=== PATIENT | female | born 1950 | race Caucasian/White ===

== ENCOUNTER → 2019-05-07 | Day surgery (SDC) | payer MEDICARE, BC ==
[~2019-05-07] MED LIST: ACETAMINOPHEN325 M1 PO; ASPIR 8181 MG PO; AZO CRANBERRY1 EACH PO; CALCIUM + VITA1 EACH PO; CALCIUM CARBON500 MG PO; CARBAMAZEPINE200 MG PO; CLARITIN-D 241 EACH PO; CYMBALTA30 MG PO; ESTRADIOL1 MG PO; EZETIMIBE-SIMV1 EAC3 PO; FENOFIBRATE145 MG PO; FENTANYL CITRATE/PF 100MCG/2 ML INJ ONE; FEXOFENADINE H180 MG PO; GLIMEPIRIDE2 MG PO; HYDRALAZINE HCL 20 MG/ML VIAL ONE; INSULIN REGULAR, HUMAN 100 UNIT/1 ML 3ML VIAL ONE; JANUVIA100 MG PO; KLOR-CON M2020 MEQ PO; LABETALOL HCL 5 MG/ML 20ML VIAL ONE; LYRICA75 MG PO; METFORMIN HCL500 MG PO; METOLAZONE5 MG PO; MIDAZOLAM HCL 2 MG/2 ML VIAL ONE; MULTI-VITAMIN1 EACH PO; OMEGA 3 1,0001 EACH PO; OMEPRAZOLE40 MG PO; OR PHACO EYE KIT ONE; PREOP PHACO EYE KIT ONE; TRESIBA100 UNIT/1 SC; vit b12 PO
--- OUTSIDE RECORDS SUMMARY | 2019-05-07 10:28 | XMS REPORT | Summary of Care ---
Author José Miguel Ellis [facility] Unknown Address Unknown Phone Unavailable Care Team Providers Care Search Engine Optimization Strategist Name Role Phone FRANCES N.PHuang, THIERRY Unavailable Unavailable MAGNUS Pastrana, FLACA Unavailable Unavailable AGUS N.Lencho, ANDREE Unavailable Unavailable MAGNUS ZAFAR, FLACA Unavailable Unavailable FRANCES HAIR, THIERRY Unavailable Unavailable HERACLIO ZAFAR, [facility]ORD [facility] Unavailable Unavailable AASHISH ZAFAR, DEDE Unavailable Unavailable Unavailable Unavailable Functional Status Name Dates Details Functional status health issues are not documented Status: Name Dates Details Cognitive status health issues are not documented Status: Problems Name Dates Details Encounter to establish care with new doctor (V65.8, Z76.89) Status: Active Abdominal pain (789.00, R10.9) Status: Active Abnormal complete blood count (790.6, R79.89) Status: Active Post-menopausal (V49.81, Z78.0) Status: Active Diabetes (250.00, E11.9) Status: Active Hypokalemia (276.8, E87.6) Status: Active Migraine without status migrainosus, not intractable (346.90, G43.909) Status: Active Edema (782.3, R60.9) Status: Active Hormone replacement therapy (postmenopausal) (V07.4, Z79.890) Status: Active Hypercholesterolemia (272.0, E78.00) Status: Active Neuropathy, peripheral (356.9, G62.9) Status: Active Chronic GERD (530.81, K21.9) Status: Active Need for hepatitis C screening test (V73.89, Z11.59) Status: Active Screen for colon cancer (V76.51, Z12.11) Status: Active History of malignant melanoma of skin (V10.82, Z85.820) Status: Resolved Encounter for diabetic foot exam (250.00, E11.9) Status: Active Encounter for screening mammogram for breast cancer (V76.12, Z12.31) Status: Active Osteoporosis screening (V82.81, Z13.820) Status: Active Well woman exam (V72.31, Z01.419) Status: Active Counseling for hormone replacement therapy (V07.4, Z71.89) Status: Active Medications Name Dates Details Omeprazole 20 MG Oral Tablet Delayed Release Disintegrating 1 tab PO daily Quantity: 90 M.A. Active B-12 2500 MCG Oral Tablet * Refills: 0 M.A. Active [place]-3 CAPS 1 tab 2 time a day * Refills: 0 M.A. Active AZO Cranberry TABS * Refills: 0 M.A. Active Claritin 10 MG Oral Tablet * Refills: 0 M.A. Active Januvia 100 MG Oral Tablet TAKE 1 TABLET DAILY * Refills: 0 M.A. Active metFORMIN HCl - 500 MG Oral Tablet TAKE 1 TABLET 3 TIMES DAILY * Refills: 0 M.A. Active Estradiol 0.5 MG Oral Tablet TAKE 1 TABLET DAILY. * Quantity: 15 Refills: 0 GOLDSMITH N.P., ANDREE Active carBAMazepine ER 200 MG Oral Tablet Extended Release 12 Hour TAKE 2 TABLETS TWICE DAILY * Quantity: 120 Refills: 0 DANIELS N.P., THIERRY Active Glimepiride 4 MG Oral Tablet TAKE 1 TABLET TWICE DAILY. * Refills: 0 M.A. Active Klor-Con M20 20 MEQ Oral Tablet Extended Release TAKE 3 TABLET DAILY * Quantity: 90 Refills: 0 SATTAR M.D., FLACA Active Acetaminophen 500 MG Oral Tablet * Refills: 0 M.A. Active metOLazone 2.5 MG Oral Tablet TAKE 1 TABLET DAILY. * Quantity: 90 Refills: 0 SATTAR M.D., FLACA Active Pregabalin 75 MG Oral Capsule TAKE 2 CAPSULE TWICE DAILY * Quantity: 120 Refills: 0 SATTAR M.D., FLACA Active DULoxetine HCl - 60 MG Oral Capsule Delayed Release Particles TAKE 1 CAPSULE DAILY * Refills: 0 M.A. Active Ezetimibe-Simvastatin 10-40 MG Oral Tablet TAKE 1 TABLET AT BEDTIME. * Quantity: 90 Refills: 0 SATTAR M.D., FLACA Active Spironolactone 25 MG Oral Tablet TAKE 1 TABLET DAILY * Quantity: 90 Refills: 0 SATTAR M.D., FLACA Active Aspirin 81 MG TABS TAKE 1 TABLET DAILY. * Refills: 6 M.A. Active Calcium 600+D3 600-800 MG-UNIT Oral Tablet Takes 1 tablet twice a day * Refills: 0 M.A. * Start : 30-Jan-2019 Active Multi For Her 50+ Oral Tablet TAKE 1 TABLET DAILY. * Refills: 0 M.A. * Start : 30-Jan-2019 Active Tresiba FlexTouch 100 UNIT/ML Subcutaneous Solution Pen-injector Inject subcutaneous 20 units at bedtime * Refills: 0 M.A. * Start : 30-Jan-2019 Active 5 x 3 ML Pen Fenofibrate 160 MG Oral Tablet TAKE 1 TABLET DAILY. * Quantity: 90 Refills: 0 SATTAR M.D., FLACA * Start : 13-Feb-2019 Active Allergies and Adverse Reactions Name Dates Details Sodium Phosphate SOLN (Allergy) Status: Active Past Medical History Name Dates Details History of malignant melanoma of skin (V10.82, Z85.820) Status: Resolved Procedures Procedure Dates Details [Q] FECAL GLOBIN BY IMMUNOCHEMISTRY Date: 13-Feb-2019 [place] - DIGITAL MAMMOGRAM Date: 20-Feb-2019 [place] Bone Density Scan 13775 Date: 20-Feb-2019 History of Appendectomy Completed History of Total Abdominal Hysterectomy Completed History of Gallbladder surgery Completed History of Wrist Surgery Completed History of Foot surgery Completed History of Knee Surgery Completed History of Tonsillectomy Completed History of Dilation And Curettage Completed Immunization Name Dates Details PCV 13, pneumococcal conjugate vaccine, 13 valent on: Jun-2014 Pneumococcal polysaccharide vaccine, 23 valent on: Jun-2015 Tdap on: Jun-2017 Family History Name Dates Details Family history of Alzheimer's disease (V17.2, Z82.0) Comments: Other Status: Active Family history of cardiac disorder (V17.49, Z82.49) Comments: Other Status: Active Family history of hypertension (V17.49, Z82.49) Comments: Other Status: Active Name Dates Details Family history of Elevated triglycerides with high cholesterol (272.2, E78.2) Status: Active Name Dates Details Family history of leukemia (V16.6, Z80.6) Status: Active Name Dates Details Family history of Parkinsonism (V17.2, Z82.0) Status: Active Name Dates Details Family history of diabetes mellitus (V18.0, Z83.3) Status: Active Social History Name Dates Details - Status: Name Dates Details Never smoker Vital Signs Date Test Result Details :22 BP Systolic 115 mm[Hg] Status: Comments: Location: LUE; Position: Sitting BP Diastolic 82 mm[Hg] Status: Comments: Location: LUE; Position: Sitting Height 69 in Status: Weight 229 lb Status: Body Mass Index Calculated 33.82 kg/m2 Status: Body Surface Area Calculated 2.19 m2 Status: Temperature 97.5 f Status: Comments: Method: Oral Heart Rate 89 /min Status: Comments: Location: L Radial; Quality: Normal :12 BP Systolic 153 mm[Hg] Status: Comments: Location: LUE; Position: Sitting BP Diastolic 82 mm[Hg] Status: Comments: Location: LUE; Position: Sitting Heart Rate 76 /min Status: :08 BP Systolic 167 mm[Hg] Status: Comments: Location: LUE; Position: Sitting BP Diastolic 90 mm[Hg] Status: Comments: Location: LUE; Position: Sitting Height 69.75 in Status: Weight 231.3125 lb Status: Body Mass Index Calculated 33.43 kg/m2 Status: Body Surface Area Calculated 2.21 m2 Status: Temperature 97.8 f Status: Comments: Method: Temporal Heart Rate 76 /min Status: Respiration Rate 16 /min Status: Results Date Description Value Details :45 [Q] CARBAMAZEPINE AND METABOLITE CARBAMAZEPINE, TOTAL 6.8 {mcg/ml} Range: 4.0-12.0 CARBAMAZEPINE METABOLITE 1.8 {mcg/ml} Range: 0.2-2.0 Comments: This test was developed and its analytical performancecharacteristics have been determined by [employer] [place], [place]. It hasnot been cleared or approved by the U.S. Food and DrugAdministration. This assay has been validated pursuantto the CLIA regulations and is used for clinicalpurposes. :45 [QLH] HEPATITIS C ANTIBODY Comments: REPORT COMMENT:FASTING:UNKNOWN HEPATITIS C ANTIBODY NON-REACTIVE (Normal) Range: NON-REACTIVE SIGNAL TO CUT-OFF 0.03 (Normal) Range: <1.00 Comments: HCV antibody was non-reactive. There is no laboratory evidence of HCV infection. In most cases, no further action is required. However,if recent HCV exposure is suspected, a test for HCV RNA(test code 28484) is suggested. For additional information please refer tohttp://education.DriveHQ.[employer]/faq/WPA01i2(This link is being provided for informational/educational purposes only.) Plan of Care Name Dates Details Planned Observations Planned Goals not documented Planned Encounters Appointment; FLACA AGUDELO M.D. On: 18-Mar-2019 11:00 Appointment; DEDE ZENDEJAS M.D. On: 25-Mar-2019 15:00 Appointment; BRADFORD PULLIAM M.D. On: 03-Apr-2019 15:15 Appointment; GERBER DRAKE M.D. On: 24-May-2019 15:00 Instructions Name Dates Details Instructions not documented Encounters Appointment; THIERRY DANIELS NP Encounter Diagnosis: Problem not documented On: 25-Dec-2018 14:30 Appointment; BRADFORD PULLIAM M.D. Encounter Diagnosis: Problem not documented On: 06-Feb-2019 9:30 Appointment; FLACA AGUDELO M.D. Encounter Diagnosis: Problem not documented On: 13-Feb-2019 13:00 Appointment; DEDE ZENDEJAS M.D. Encounter Diagnosis: Problem not documented On: 18-Feb-2019 16:20 Appointment; ANDREE GOLDSMITH NP Encounter Diagnosis: Problem not documented On: 20-Feb-2019 13:00 Appointment; BRADFORD PULLIAM M.D. Encounter Diagnosis: Problem not documented On: 20-Feb-2019 14:00 Appointment; DEDE ZENDEJAS M.D. Encounter Diagnosis: Problem not documented On: 28-Feb-2019 14:40 Appointment; DEDE ZENDEJAS M.D. Encounter Diagnosis: Problem not documented On: 11-Mar-2019 16:00
--- OUTSIDE RECORDS SUMMARY | 2019-05-07 10:28 | XMS REPORT ---
Author Author [facility] Address Unknown Phone Unavailable Care Team Providers Care Career And Technology Education Teacher Name Role Phone Unavailable Unavailable Payers Payer Name Policy Type Policy Number Effective Date Expiration Date Problems This patient has no known problems. Allergies, Adverse Reactions, Alerts Allergy Name Allergy Type Status Severity Reaction(s) Onset Date Inactive Date Treating Clinician Comments Phenothiazines DA Active U 2007-03-22 00:00:00 prochlorperazine DA Active U 2007-03-22 00:00:00 codeine DA Active U 2007-03-22 00:00:00 belladonna alkaloids DA Active U 2007-03-22 00:00:00 hyoscyamine DA Active U 2007-03-22 00:00:00 promethazine DA Active U 2007-03-22 00:00:00 chlorpromazine DA Active U 2007-03-22 00:00:00 mesoridazine DA Active U 2007-03-22 00:00:00 .CHLORPH DA Active U 2007-03-22 00:00:00 .ETHOPROPA DA Active U 2007-03-22 00:00:00 .HYCOSAMIN DA Active U 2007-03-22 00:00:00 .METHOTRIM DA Active U 2007-03-22 00:00:00 .PROPIOMA DA Active U 2007-03-22 00:00:00 .SODIUM PE DA Active U 2007-03-22 00:00:00 AMITRIPTYLINE DA Active U 2007-03-22 00:00:00 CODEINE DA Active U 2007-03-22 00:00:00 COMPAZINE DA Active U 2007-03-22 00:00:00 FLUPHENAZINE DA Active U 2007-03-22 00:00:00 LOMOTIL DA Active U 2007-03-22 00:00:00 MESORIDAZINE DA Active U 2007-03-22 00:00:00 No Known Contrast Allergies DA Active U 2007-03-22 00:00:00 No Known Food Allergies DA Active U 2007-03-22 00:00:00 No Known Other Allergies DA Active U 2007-03-22 00:00:00 PROCHLORPERAZINE DA Active U 2007-03-22 00:00:00 PROMETHAZINE DA Active U 2007-03-22 00:00:00 THIETHYLPERAZINE DA Active U 2007-03-22 00:00:00 TYLENOL DA Active U 2007-03-22 00:00:00 Medications This patient has no known medications. Results Test Description Test Time Test Comments Text Results Atomic Results Result Comments SCR MAMM BILATERAL LUC CAD DIGITAL 2019-03-26 08:51:23 - SCR MAMM BILATERAL LUC CAD DIGITALBILATERAL DIGITAL SCREENING MAMMOGRAM 3D/2D WITH CAD: 03/25/2019CLINICAL: Asymptomatic. Digital breast tomosynthesis was performed in addition to routine CC and MLO views. Current mammographic images were evaluated by either a Datacastle M-Vu or a [employer] ImageChecker CAD (computer aided detection system). Comparison is made to exams dated 11/16/2016 mammogram, 05/07/2013 mammogram, and 04/05/2012 mammogram - [facility]-. The tissue of both breasts is heterogeneously dense. This may lower the sensitivity of mammography. There is a biopsy clip in the left breast. No suspicious mass, architectural distortion, malignant type calcification, or lymph node abnormality detected. Breast architecture is stable compared to prior exams.IMPRESSION: BENIGNThere is no mammographic evidence of malignancy. Resume annual screening mammography in one year. Yash Isidro M.D. ss/penrad:03/26/2019 08:51:23 Cake Knocker: Grace [place], [facility]-FWletter sent: BIRADS 1-2 Normal Mammogram BI-RADS: 2 Benign
[2019-05-07 14:45] VITALS: BP 120/63
== END | disposition home or self-care (01) ==
LOC: OR 10:26
PROVIDERS: ATTEND Ophthalmology
DX: H25.12 Age-related nuclear cataract, left eye (principal); E11.22 Type 2 diabetes mellitus with diabetic chronic kidney disease; I12.9 Hypertensive chronic kidney disease with stage 1 through stage 4 chronic kidney disease, or unspecified chronic kidney disease; N18.3 Chronic kidney disease, stage 3 (moderate); G57.90 Unspecified mononeuropathy of unspecified lower limb; M54.9 Dorsalgia, unspecified; G47.33 Obstructive sleep apnea (adult) (pediatric); E78.5 Hyperlipidemia, unspecified; Z88.6 Allergy status to analgesic agent; Z88.8 Allergy status to other drugs, medicaments and biological substances; Z91.048 Other nonmedicinal substance allergy status; Z79.82 Long term (current) use of aspirin; Z79.84 Long term (current) use of oral hypoglycemic drugs; Z79.4 Long term (current) use of insulin
CPT/HCPCS: 36415; 66984; 82948; J0360; J2250; J3010; J3490; V2632; J1817

== ENCOUNTER → 2019-05-21 | Day surgery (SDC) | payer MEDICARE, BC ==
[~2019-05-21] MED LIST changes: -INSULIN REGULAR, HUMAN 100 UNIT/1 ML 3ML VIAL ONE; -LABETALOL HCL 5 MG/ML 20ML VIAL ONE
[2019-05-21 11:45] VITALS: BP 172/82
== END | disposition home or self-care (01) ==
LOC: OR 08:16
PROVIDERS: ATTEND Ophthalmology
DX: H25.11 Age-related nuclear cataract, right eye (principal); E11.9 Type 2 diabetes mellitus without complications; G62.9 Polyneuropathy, unspecified; R56.9 Unspecified convulsions; G47.33 Obstructive sleep apnea (adult) (pediatric); E78.5 Hyperlipidemia, unspecified; R60.9 Edema, unspecified; Z79.890 Hormone replacement therapy; E87.6 Hypokalemia; E78.00 Pure hypercholesterolemia, unspecified; G43.909 Migraine, unspecified, not intractable, without status migrainosus; E66.9 Obesity, unspecified; Z88.6 Allergy status to analgesic agent; Z88.1 Allergy status to other antibiotic agents; Z88.8 Allergy status to other drugs, medicaments and biological substances; Z91.048 Other nonmedicinal substance allergy status; Z79.84 Long term (current) use of oral hypoglycemic drugs; Z68.33 Body mass index [BMI] 33.0-33.9, adult; Z85.820 Personal history of malignant melanoma of skin
CPT/HCPCS: 36415; 66984; 82948; J0360; J2250; J3010; V2632

== ENCOUNTER 2022-09-18 17:19 | Inpatient (IN) | payer MEDICARE, BC ==
[~2022-09-18] VITALS: Ht 175.3 cm; Wt 98.0 kg
[~2022-09-18 17:19] MED LIST changes: -FENTANYL CITRATE/PF 100MCG/2 ML INJ ONE; -HYDRALAZINE HCL 20 MG/ML VIAL ONE; -MIDAZOLAM HCL 2 MG/2 ML VIAL ONE; -OR PHACO EYE KIT ONE; -PREOP PHACO EYE KIT ONE
[2022-09-18 18:08] LABS: BASOPHILS # (AUTO) 0.1 (0.0-0.1); BASOPHILS % 0.8 % (0.0-1.0); EOSINOPHILS % 0.3 % (0.0-6.0); HEMATOCRIT 39.7 % (34.2-44.1); HEMOGLOBIN 13.1 g/dL (12.0-16.0); LYMPHOCYTES # (AUTO) 1.5 (1.0-3.2); LYMPHOCYTES % 19.3 % (18.0-39.1); MEAN CORPUSCULAR HEMOGLOBIN 26.3 pg (28-32); MEAN CORPUSCULAR VOLUME 79.6 fL (81-99); MONOCYTES # (AUTO) 0.3 (0.2-0.8); MONOCYTES % 4.3 % (4.4-11.3); NEUTROPHILS # (AUTO) 5.8 (2.1-6.9); NEUTROPHILS % 74.8 % (38.7-80.0); PLATELET COUNT 340 x10e3/uL (140-360); RED BLOOD COUNT 4.99 x10e6/uL (3.6-5.1); RED CELL DISTRIBUTION WIDTH 14.3 % (11.7-14.4)
[2022-09-18] MEDS ORDERED: DEXTROSE 5%/0.9% SOD CHL 1,000 ML IV ONE (18:15)
[2022-09-18 18:27] LABS: ALBUMIN 3.7 g/dL (3.5-5.0); ALBUMIN/GLOBULIN RATIO 1.2 (0.8-2.0); ANION GAP 15.8 mmol/L (8-16); CALCIUM 9.4 mg/dL (8.4-10.2); CREATININE, SERUM 0.73 mg/dL (0.57-1.11); POTASSIUM 3.8 mmol/L (3.5-5.1)
[2022-09-18] MEDS ORDERED: ONDANSETRON HCL INJ 2MG/ML 2ML 2 MG/ML VIAL IV PRN (20:15)
[2022-09-18] MEDS ORDERED: DEXTROSE 50% SYRINGE 50 ML IV PRN (20:15)
[2022-09-18] MEDS ORDERED: NIFEDIPINE 10 MG CAP PO STA (20:33)
[2022-09-18 21:15] VITALS: BP 173/92
[2022-09-18 21:30] VITALS: BP 222/102
[2022-09-18 21:34] VITALS: BP 222/102
[2022-09-18] MEDS: HYDRALAZINE HCL 20 MG/ML VIAL IV PRN (22:34)
[2022-09-18 23:00] VITALS: BP 214/89
[2022-09-19] VITALS (9 sets, daily range): BP systolic 161–208; BP diastolic 73–89
[2022-09-19] MEDS ORDERED: IBUPROFEN 400 MG TAB PO PRN (02:30)
[2022-09-19] MEDS ORDERED: ACETAMINOPHEN 325 MG TAB PO PRN (02:30)
[2022-09-19] MEDS: HYDRALAZINE HCL 20 MG/ML VIAL IV PRN ×2 (04:08→14:21)
[2022-09-19 05:36] LABS: BASOPHILS # (AUTO) 0.1 (0.0-0.1); BASOPHILS % 0.6 % (0.0-1.0); EOSINOPHILS # (AUTO) 0.1 (0.0-0.4); EOSINOPHILS % 0.5 % (0.0-6.0); HEMOGLOBIN 13.1 g/dL (12.0-16.0); LYMPHOCYTES # (AUTO) 2.7 (1.0-3.2); LYMPHOCYTES % 24.2 % (18.0-39.1); MEAN CORPUSCULAR HGB CONC 32.8 g/dL (31-35); MEAN CORPUSCULAR VOLUME 82.5 fL (81-99); MONOCYTES # (AUTO) 0.8 (0.2-0.8); MONOCYTES % 6.7 % (4.4-11.3); NEUTROPHILS # (AUTO) 7.5 (2.1-6.9); NEUTROPHILS % 67.6 % (38.7-80.0); PLATELET COUNT 280 x10e3/uL (140-360); RED BLOOD COUNT 4.85 x10e6/uL (3.6-5.1); RED CELL DISTRIBUTION WIDTH 14.6 % (11.7-14.4)
[2022-09-19 05:52] LABS: CREATINE KINASE 35 IU/L (29-168)
[2022-09-19 05:54] LABS: ALBUMIN 3.5 g/dL (3.5-5.0); ALBUMIN/GLOBULIN RATIO 1.2 (0.8-2.0); ANION GAP 15.5 mmol/L (8-16); CALCIUM 9.1 mg/dL (8.4-10.2); CREATININE, SERUM 0.74 mg/dL (0.57-1.11); POTASSIUM 3.5 mmol/L (3.5-5.1)
[2022-09-19] MEDS ORDERED: MELATONIN 3 MG TAB PO PRN (07:30)
[2022-09-19] MEDS ORDERED: DOCUSATE SODIUM 100 MG CAP PO PRN (07:30)
[2022-09-19] MEDS ORDERED: METOPROLOL TARTRATE INJ 1 MG/ML VIAL IV PRN (07:30)
[2022-09-19] MEDS ORDERED: SIMETHICONE 80 MG CHEW PO PRN (07:30)
[2022-09-19 08:04] LABS: CHOL/HDL RATIO 2.4 (3.0-3.6)
[2022-09-19] MEDS ORDERED: LORATADINE/PSEUDOEPHEDRINE 24 HR SR TAB PO SCH (09:00)
[2022-09-19] MEDS: FENOFIBRATE 160 MG PO SCH (09:00)
[2022-09-19] MEDS: ASPIRIN 81 MG CHEW TAB PO SCH (09:18)
[2022-09-19] MEDS: CARBAMAZEPINE 200 MG TAB PO SCH ×2 (09:18→17:00)
[2022-09-19] MEDS: DULOXETINE HCL 30 MG DELAYED RELEASE PO SCH (09:18)
[2022-09-19] MEDS: PREGABALIN 75 MG CAP PO SCH ×2 (09:18→17:00)
[2022-09-19] MEDS: PANTOPRAZOLE SOD 40 MG TABEC PO SCH (09:18)
[2022-09-19] MEDS: METOLAZONE 5 MG TAB PO SCH (09:18)
[2022-09-19] MEDS: ESTRADIOL 1 MG TAB PO SCH (09:19)
[2022-09-19] MEDS: NIFEDIPINE CR 30 MG TAB PO SCH ×2 (09:20→21:14)
[2022-09-19] MEDS: METOPROLOL TARTRATE 25 MG TAB PO SCH ×3 (09:22→21:15)
[2022-09-19] MEDS ORDERED: DEXTROSE 50% SYRINGE 50 ML IV PRN (10:00)
[2022-09-19] MEDS: INSULIN REGULAR, HUMAN 100 UNIT/1 ML SQ SCH ×3 (10:21→21:25)
[2022-09-19] MEDS ORDERED: METFORMIN HCL 500 MG TAB PO ONE (10:30)
[2022-09-19] MEDS: METFORMIN HCL 500 MG TAB PO SCH (17:53)
[2022-09-19] MEDS: EZETIMIBE 10 MG TAB PO SCH ×2 (21:00→21:14)
[2022-09-19] MEDS: ATORVASTATIN 20 MG TAB PO SCH ×2 (21:00→21:14)
[2022-09-20 03:00] VITALS: BP 165/97
[2022-09-20] MEDS: METOPROLOL TARTRATE 25 MG TAB PO SCH ×2 (05:41→11:42)
[2022-09-20] MEDS: PANTOPRAZOLE SOD 40 MG TABEC PO SCH (08:47)
[2022-09-20] MEDS: METFORMIN HCL 500 MG TAB PO SCH (08:47)
[2022-09-20] MEDS ORDERED: NIFEDIPINE ER30 M1 PO (08:47)
[2022-09-20] MEDS ORDERED: LOPRESSOR25 MG PO (08:47)
[2022-09-20] MEDS: INSULIN REGULAR, HUMAN 100 UNIT/1 ML SQ SCH (08:52)
[2022-09-20 08:54] VITALS: BP 165/73
[2022-09-20] MEDS: ESTRADIOL 1 MG TAB PO SCH (09:00)
[2022-09-20] MEDS: FENOFIBRATE 160 MG PO SCH (09:00)
[2022-09-20 11:31] VITALS: BP 197/94
[2022-09-20] MEDS: DULOXETINE HCL 30 MG DELAYED RELEASE PO SCH (11:41)
[2022-09-20] MEDS: ASPIRIN 81 MG CHEW TAB PO SCH (11:41)
[2022-09-20] MEDS: METOLAZONE 5 MG TAB PO SCH (11:41)
[2022-09-20] MEDS: HYDRALAZINE HCL 20 MG/ML VIAL IV PRN (11:42)
[2022-09-20 12:07] VITALS: BP 175/79
[2022-09-20 13:05] VITALS: BP 175/79
== END 2022-09-20 12:07 | disposition home or self-care (01) | DRG 638 ==
LOC: ER 17:38 → ERHOLD 20:10 → ICU 21:06
PROVIDERS: ADMIT Internal Medicine; ATTEND Internal Medicine
DX: E11.649 Type 2 diabetes mellitus with hypoglycemia without coma (principal); I16.1 Hypertensive emergency; T38.3X5A Adverse effect of insulin and oral hypoglycemic [antidiabetic] drugs, initial encounter; E78.5 Hyperlipidemia, unspecified; I10 Essential (primary) hypertension; G43.909 Migraine, unspecified, not intractable, without status migrainosus; Z79.4 Long term (current) use of insulin; Z20.822 Contact with and (suspected) exposure to COVID-19
CPT/HCPCS: 0223U; 36415; 71045; 80053; 80061; 82550; 82553; 82948; 83036; 84484; 85025; 93005; 99284; J7042